=== PATIENT | male | born 1990 | race Caucasian/White ===

== ENCOUNTER 2018-04-05 14:41 | Emergency (ER) | payer SELFPAY ==
[~2018-04-05] VITALS: Ht 175.3 cm; Wt 61.2 kg
[~2018-04-05 14:41] MED LIST: Bactrim Ds Tab1 EACH PO; IBUP600 PO; Norco 5-325 Ta1 EACH PO; SULTRIDS PO; Zofran Odt4 MG SL
[2018-04-05] MEDS ORDERED: CEPH500 PO (15:47)
== END 2018-04-05 15:52 | disposition home or self-care (01) ==
LOC: ER 14:41
DX: L02.415 Cutaneous abscess of right lower limb (principal); F17.200 Nicotine dependence, unspecified, uncomplicated; Z88.5 Allergy status to narcotic agent
CPT/HCPCS: 10060; 99282-25

== ENCOUNTER 2018-09-25 20:41 | Emergency (ER) | payer MEDICAID ==
[~2018-09-25] VITALS: Ht 177.8 cm; Wt 61.2 kg
[~2018-09-25 20:41] MED LIST changes: +CEPH500 PO
== END 2018-09-25 22:16 | disposition home or self-care (01) ==
LOC: ER 20:41
DX: J06.9 Acute upper respiratory infection, unspecified (principal); Z88.5 Allergy status to narcotic agent; F17.200 Nicotine dependence, unspecified, uncomplicated
CPT/HCPCS: 87081; 87147; 87430; 99283

== ENCOUNTER 2023-03-09 18:33 | Emergency (ER) | payer OTHER ==
[~2023-03-09] VITALS: Ht 177.8 cm; Wt 65.8 kg
[2023-03-09 18:45] VITALS: BP 151/95
== END 2023-03-09 18:49 | disposition home or self-care (01) ==
LOC: ER 18:33
DX: S93.401A Sprain of unspecified ligament of right ankle, initial encounter (principal); W18.42XA Slipping, tripping and stumbling without falling due to stepping into hole or opening, initial encounter; F17.200 Nicotine dependence, unspecified, uncomplicated
CPT/HCPCS: 99281

== ENCOUNTER 2023-10-30 19:58 | Emergency (ER) | payer OTHER ==
[~2023-10-30] VITALS: Ht 175.3 cm; Wt 63.5 kg
[2023-10-30 20:09] VITALS: BP 144/92
== END 2023-10-30 21:29 | disposition home or self-care (01) ==
LOC: ER 19:58
DX: S69.91XA Unspecified injury of right wrist, hand and finger(s), initial encounter (principal); M70.841 Other soft tissue disorders related to use, overuse and pressure, right hand; X50.1XXA Overexertion from prolonged static or awkward postures, initial encounter; F17.200 Nicotine dependence, unspecified, uncomplicated
CPT/HCPCS: 73130; 99283-25

== ENCOUNTER → 2024-02-28 | Outpatient (CLI) | payer OTHER | LOC: LAB SHORT 16:54 → LAB 16:54 | DX: J02.9 Acute pharyngitis, unspecified (principal) | CPT/HCPCS: 87081 ==